=== PATIENT | male | born 1975 | race Caucasian/White ===

== ENCOUNTER 2018-05-21 18:38 | Emergency (ER) | payer OTHER ==
[2018-05-21] MEDS ORDERED: NS 1,000 ML IV ONE (18:59)
[2018-05-21] MEDS ORDERED: HYDROmorphONE/DILAUDID 2 MG/ML INJ IVP ONE (18:59)
[2018-05-21] MEDS ORDERED: LET GEL TOPICAL 1 EA SYR TP ONE ×2 (19:00→19:08)
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
[2018-05-21] MEDS ORDERED: HYDROmorphONE/DILAUDID 1 MG/ML INJ ONE (19:06)
[2018-05-21] MEDS ORDERED: LORazepam 2 MG/ML INJ IVP ONE (19:37)
[2018-05-21] MEDS ORDERED: TDAP ADULT 0.5 ML INJ (BOOSTRIX) IM ONE (20:36)
[2018-05-21] MEDS ORDERED: HYDROCOD/APAP 5/325 PREPACK#6 BTL TAKEHOME ONE (20:44)
[2018-05-21] MEDS ORDERED: AMOXICILLIN/CLAVULANATE POT 875/125 MG TAB PO ONE (20:44)
[2018-05-21 21:21] VITALS: BP 150/100
== END 2018-05-21 21:19 | disposition home or self-care (01) ==
PROC: 0HQ1XZZ Repair Face Skin, External Approach (ICD-10-PCS; principal; 2018-05-21)
DX: S02.2XXB Fracture of nasal bones, initial encounter for open fracture (principal); S62.653A Nondisplaced fracture of middle phalanx of left middle finger, initial encounter for closed fracture; E86.9 Volume depletion, unspecified; Z23 Encounter for immunization; V18.0XXA Pedal cycle driver injured in noncollision transport accident in nontraffic accident, initial encounter; Y99.8 Other external cause status; Y93.55 Activity, bike riding
CPT/HCPCS: 96374; J1170; J2060; L3925